=== PATIENT | male | born 1955 | race Caucasian/White ===

== ENCOUNTER 2017-05-16 08:50 | Day surgery (SDC) | payer OTHER ==
[2017-05-12 10:30] VITALS: BMI 27.0
[2017-05-16] MEDS ORDERED: DEXAMETHASONE SOD PHOSPHATE 4 MG/1 ML VIAL ONE ×2 (10:10→11:36)
[2017-05-16] MEDS ORDERED: ROPIVACAINE HCL 0.5% 30ML VIAL ONE (10:10)
[2017-05-16] MEDS ORDERED: MIDAZOLAM HCL 2 MG/2 ML SINGLE DOSE VIAL ONE (10:10)
[2017-05-16] MEDS ORDERED: DEXAMETHASONE SOD PHOSPHATE/PF 10 MG/ML SDV ONE (10:11)
[2017-05-16] MEDS ORDERED: SCOPOLAMINE HYDROBROMIDE 1 PATCH PATCH.TD72 ONE (10:20)
[2017-05-16] MEDS ORDERED: BUPIVACAINE HCL/EPINEPHRINE/PF 30 ML VIAL IJ ONE ×2 (10:32→10:39)
--- NOTE | 2017-05-16 10:49 | HP ---
History & Physical Update - History History: No Change - Physical Physical: No Change - Assessment Assessment: No Change - Plan Plan: No Change
[2017-05-16] MEDS ORDERED: PROPOFOL 20 ML ONE ×2 (11:18→11:50)
[2017-05-16] MEDS ORDERED: ceFAZolin SODIUM 1 GM VIAL ONE (11:24)
[2017-05-16] MEDS ORDERED: ONDANSETRON 4 MG/2 ML VIAL ONE ×2 (11:36→12:41)
[2017-05-16] MEDS ORDERED: ONDANSETRON 4 MG/2 ML VIAL IVPUSH PRN (12:16)
[2017-05-16] MEDS ORDERED: oxyCODONE HCL 5 MG TABLET PO PRN ×2 (12:16)
[2017-05-16] MEDS ORDERED: LACTATED RINGERS SOLUTION 1,000 ML IV SCH (12:30)
[2017-05-16] MEDS ORDERED: ONDANSETRON 4 MG/2 ML VIAL IVPUSH ONE (12:45)
--- NOTE | 2017-05-16 12:49 | DS ---
Physical Examination Vital Signs: Vital Signs Temperature 97.6 F 05/16/17 09:33 Pulse Rate 48 L 05/16/17 09:33 Respiratory Rate 16 05/16/17 09:33 Blood Pressure 139/77 05/16/17 09:33 O2 Sat by Pulse Oximetry (%) 96 05/16/17 09:44 Discharge Summary Reason For Visit: OSTEOARTHRITIS, MEDIAL MENISCAL TEAR, RIGHT KNEE Condition: Good - Instructions Diet, Activity, Other Instructions: Post Operative Instructions: Knee Arthroscopy Dr Nelson Bowen 1. Pain following an arthroscopy is variable. Some patients will have more pain than others. You have been provided with a prescription for medication that contains a narcotic. You are not allowed to drive while on this medication. You should NOT take Tylenol (Acetaminophen) when taking the pain medication ( it will result in an overdose). Feel free to take medications such as Ibuprofen or Naprosyn in addition to the pain medicine if you do not have any problems with the NSAID class of medications. 2. You are allowed to remove the bandages and shower in 24 hours unless directed otherwise. You are not allowed to bathe or go swimming until the sutures are removed. Put band-aids on the sutures after your shower and do not put any creams or lotions over the incisions. 3. You are NOT allowed to put weight on the leg. You can bend your knee. 4. Apply ice to the knee for 15 min every hour or so. You may continue this for as many days as you like. 5. Please call the office to schedule a visit to have your sutures removed. 6. If for any reason you believe you may have an infection or are concerned, please feel free to call me. I can be reached through our office number 24 hours a day. 7. Please call our office with any questions; we will review the surgical findings during your post operative visit. Disposition: HOME - Home Medications Comprehensive Discharge Medication List: Ambulatory Orders Aspirin Coated [Ecotrin -] 81 mg PO DAILY 07/09/13 Oxycodone HCl 10 mg PO Q4H PRN #80 tablet 07/16/13 Atorvastatin Ca [Lipitor] 10 mg PO DAILY 05/12/17 Lamotrigine [Lamictal] 225 mg PO DAILY 05/12/17
--- NOTE | 2017-05-16 12:49 | OP ---
Operative Note - Note: Operative Date: 05/16/17 Pre-Operative Diagnosis: Right knee MMT, mild OA, subchondral stress fx Operation: RKA, partial menisectomy, synovectomy, subchondroplasty Post-Operative Diagnosis: Same as Pre-op Surgeon: Nelson Bowen Assistant Banquet Manager: Alisia Bang Anesthesiologist/LOAN EXAMINER: Uriah Jacobs Anesthesia: General Operative Report Dictated: Yes
[2017-05-16 13:36] VITALS: TEMP 97.5
[2017-05-16 14:52] VITALS: BP 146/83; PULSE 50
--- NOTE | 2017-05-20 16:13 | PATH ---
Surgical Pathology Report Patient Name: YARY JAIMES [facility]. Rec. #: [id number] /Age/Gender: 1955 (Age: 62) / M Account: [id number] Location: [facility] AMBULATORY Taken: 05/16/2017 Received: 05/16/2017 Reported: 05/20/2017 Physicians: Nelson Bowen M.D. Specimen(s) Received LOOSE BODY RIGHT KNEE Clinical History Osteoarthritis Final Diagnosis LOOSE BODY, RIGHT KNEE, REMOVAL: LOOSE BODY. Electronically Signed Nyla Stanton M.D. Gross Description Received in formalin labeled "loose body right knee," is a 0.8 x 0.6 x 0.4 cm romero, hard portion of calcified tissue. The specimen is bisected and entirely submitted in one cassette, following decalcification. 05/19/201705/19/2017
== END 2017-05-16 14:45 | disposition home or self-care (01) ==
LOC: FASU 08:50
PROVIDERS: ATTEND Orthopaedic Surgery
PROC: 0SBC4ZZ Excision of Right Knee Joint, Percutaneous Endoscopic Approach (ICD-10-PCS; 2017-05-16)
PROC: 0SU Lower Joints, Supplement (ICD-10-PCS; 2017-05-16)
PROC: 0SBC4ZZ Excision of Right Knee Joint, Percutaneous Endoscopic Approach (ICD-10-PCS; principal; 2017-05-16 11:42)
DX: S83.241A Other tear of medial meniscus, current injury, right knee, initial encounter (principal); M65.9 Synovitis and tenosynovitis, unspecified; M84.361A Stress fracture, right tibia, initial encounter for fracture; X58.XXXA Exposure to other specified factors, initial encounter; Y93.89 Activity, other specified; Y92.9 Unspecified place or not applicable
CPT/HCPCS: 88304-TC; 94760

== ENCOUNTER 2018-04-13 07:10 | Day surgery (SDC) | payer OTHER ==
[2018-04-06 12:03] VITALS: BMI 27.5
[2018-04-13] MEDS ORDERED: MIDAZOLAM HCL 2 MG/2 ML SINGLE DOSE VIAL ONE (08:36)
--- NOTE | 2018-04-13 08:57 | OP ---
Operative Note - Note: Operative Date: 04/13/18 Pre-Operative Diagnosis: right knee stiffness Operation: BRIDGET right knee Post-Operative Diagnosis: Same as Pre-op Surgeon: Nelson Bowen Anesthesia: General Operative Report Dictated: Yes
--- NOTE | 2018-04-13 08:57 | DS ---
Physical Examination Vital Signs: Vital Signs Temperature 97.6 F 04/13/18 07:35 Pulse Rate 62 04/13/18 07:35 Respiratory Rate 18 04/13/18 07:35 Blood Pressure 137/84 04/13/18 07:35 O2 Sat by Pulse Oximetry (%) 96 04/13/18 07:35 Discharge Summary Reason For Visit: ARTHROFIBROSIS RIGHT KNEE Condition: Good - Instructions Diet, Activity, Other Instructions: Range of motion as tolerated. May continue with normal activity Start PT tomorrow. Please schedule and office visit for one month from now. Disposition: HOME - Home Medications Comprehensive Discharge Medication List: Ambulatory Orders Aspirin Coated [Ecotrin -] 81 mg PO DAILY 07/09/13 Oxycodone HCl 10 mg PO Q4H PRN #80 tablet 07/16/13 Atorvastatin Ca [Lipitor] 10 mg PO DAILY 05/12/17 Lamotrigine [Lamictal] 225 mg PO DAILY 05/12/17 Sertraline HCl [Zoloft] 25 mg PO DAILY 04/13/18
[2018-04-13 10:02] VITALS: TEMP 97.5
[2018-04-13] MEDS ORDERED: oxyCODONE HCL 5 MG TABLET PO PRN (10:07)
[2018-04-13 10:32] VITALS: BP 125/86; PULSE 60
== END 2018-04-13 10:30 | disposition home or self-care (01) ==
LOC: FASU 07:10
PROVIDERS: ATTEND Orthopaedic Surgery
PROC: 0SNCXZZ Release Right Knee Joint, External Approach (ICD-10-PCS; principal; 2018-04-13 08:54)
DX: M25.661 Stiffness of right knee, not elsewhere classified (principal)
CPT/HCPCS: 94760

== ENCOUNTER 2023-08-04 06:23 | Day surgery (SDC) | payer OTHER, MEDICARE ==
[2023-07-24 17:24] VITALS: BMI 27.6
[2023-08-04] MEDS ORDERED: LIDOCAINE HCL/PF 2% SDV 5ML VIAL ONE (07:07)
[2023-08-04] MEDS ORDERED: VANCOMYCIN 1,000 MG VIAL (RESTRICTED TO ID ONLY) ONE ×2 (07:07→07:24)
[2023-08-04] MEDS ORDERED: ceFAZolin SODIUM 1 GM VIAL ONE (07:07)
[2023-08-04] MEDS ORDERED: ONDANSETRON 4 MG/2 ML VIAL ONE (07:07)
[2023-08-04] MEDS ORDERED: DEXAMETHASONE SOD PHOSPHATE 4 MG/1 ML VIAL ONE (07:07)
[2023-08-04] MEDS ORDERED: PROPOFOL 20 ML ONE (07:08)
[2023-08-04] MEDS ORDERED: MIDAZOLAM HCL 2 MG/2 ML SINGLE DOSE VIAL ONE (07:09)
[2023-08-04] MEDS ORDERED: ROCURONIUM BROMIDE 50 MG/5 ML SYRINGE ONE ×2 (07:11→09:01)
[2023-08-04] MEDS ORDERED: BUPIVACAINE LIPOSOME/PF (EXPAREL) 266 MG/20 ML VIAL ONE (07:21)
[2023-08-04] MEDS ORDERED: BUPIVACAINE HCL/PF 0.5% (5MG/ML) 10 ML VIAL ONE (07:21)
[2023-08-04] MEDS ORDERED: BUPIVACAINE HCL/PF 2.5 MG/ML - 30 ML VIAL IJ ONE (07:22)
[2023-08-04] MEDS ORDERED: EPINEPHrine/PF 1 MG/1 ML (1:1,000) AMPULE ONE (07:32)
[2023-08-04] MEDS ORDERED: SCOPOLAMINE HYDROBROMIDE 1 PATCH PATCH.TD72 ONE (07:40)
[2023-08-04] MEDS ORDERED: SUGAMMADEX SODIUM 200 MG/2 ML VIAL ONE (09:54)
[2023-08-04] MEDS: VANCOMYCIN 1,000 MG VIAL (RESTRICTED TO ID ONLY) IVPB ONE (10:09)
[2023-08-04] MEDS ORDERED: PROMETHAZINE HCL 25 MG/1 ML VIAL IVPB PRN (11:04)
[2023-08-04] MEDS ORDERED: oxyCODONE HCL 5 MG TABLET PO PRN ×2 (11:04)
[2023-08-04] MEDS ORDERED: ONDANSETRON 4 MG/2 ML VIAL IVPUSH PRN (11:04)
[2023-08-04] MEDS ORDERED: ACETAMINOPHEN INJECTION 100 ML IVPB ONE (11:32)
[2023-08-04] MEDS: ACETAMINOPHEN 1000 MG/100 ML BAG IVPB ONE (13:13)
[2023-08-04] MEDS: LACTATED RINGERS SOLUTION 1,000 ML IV SCH (13:23)
[2023-08-04] MEDS: CEFAZOLIN 2 GM in DEXTROSE 5%-WATER - 100 ML IVPB ONE (13:23)
[2023-08-04] MEDS: TRANEXAMIC ACID 1000 MG/10 ML VIAL IVPUSH ONE (13:23)
[2023-08-04] MEDS: CEFAZOLIN SODIUM 2 GM in DEXTROSE 5%-WATER 100 ML IVPB SCH (16:20)
[2023-08-04] MEDS: INSULIN ASPART SLIDING SCALE (NOVOLOG) 1 VIAL SQ SCH (17:07)
[2023-08-04] MEDS: ACETAMINOPHEN 500 MG TABLET (FP) PO SCH (17:20)
[2023-08-04] MEDS ORDERED: CEFAZOLIN 2 GM in DEXTROSE 5%-WATER - 100 ML IVPB SCH (18:00)
[2023-08-04] MEDS: SODIUM CHLORIDE 1,000 ML IV SCH (21:07)
[2023-08-04 22:44] VITALS: RESP 18
[2023-08-05] MEDS: lamoTRIgine 100 MG TABLET PO SCH (09:21)
[2023-08-05] MEDS: ASPIRIN 81 MG CHEWABLE TABLETS PO SCH (09:21)
[2023-08-05] MEDS: ESCITALOPRAM OXALATE 20 MG TABLET PO SCH (09:21)
[2023-08-05] MEDS: VANCOMYCIN/WATER FOR INJ (PEG) 1 GM/200 ML BAG IVPB ONE (09:21)
[2023-08-05 10:23] VITALS: BP 125/72; PULSE 66; TEMP 97.8
== END 2023-08-05 12:23 | disposition home or self-care (01) ==
LOC: FASUSAT 06:23 → FM/S 12:11 → FASUSAT 08-05 12:23
PROC: 0LS40ZZ Reposition Left Upper Arm Tendon, Open Approach (ICD-10-PCS; 2023-08-04)
PROC: 0RRK0JZ Replacement of Left Shoulder Joint with Synthetic Substitute, Open Approach (ICD-10-PCS; principal; 2023-08-04 08:24)
DX: M19.012 Primary osteoarthritis, left shoulder (principal); M75.22 Bicipital tendinitis, left shoulder
CPT/HCPCS: 23430; 23472; C1776; 73030-TC-LT-FY; 82962; 88305-TC; 88311-TC; 94760; 97116-GP; 97162-GP; C1889; J0131